=== PATIENT | male | born 1995 | race African-American/Black ===

== ENCOUNTER 2018-07-18 01:37 | Emergency (ER) | payer MEDICAID, OTHER ==
[~2018-07-18] VITALS: Ht 193 cm; Wt 100.0 kg
[2018-07-18] MEDS: ONDANSETRON 4MG ODT PO ONE (04:58)
[2018-07-18 05:27] VITALS: BP 126/49
== END 2018-07-18 05:28 | disposition home or self-care (01) ==
LOC: ER 01:37
DX: T43.641A Poisoning by ecstasy, accidental (unintentional), initial encounter (principal); R56.9 Unspecified convulsions; Y92.89 Other specified places as the place of occurrence of the external cause
CPT/HCPCS: 93005; 99283; Q0162